=== PATIENT | female | born 1955 | race Caucasian/White ===

== ENCOUNTER 2018-09-09 09:29 | Inpatient (IN) | payer OTHER ==
[2018-09-09] MEDS: SOD CHLORIDE 0.9% 500 ML IV ×2 (10:01→21:00)
[2018-09-09] MEDS: ONDANSETRON 4 MG INJ IV ×3 (10:02→21:17)
[2018-09-09] MEDS: morphine 4 MG/ML VIAL IV ×2 (10:02→14:55)
[2018-09-09 10:08] LABS: ADD MAN DIFF? NO
[2018-09-09 10:10] LABS: BASOPHILS % 0.3 % (0.0-2.0); EOSINOPHILS % 0.3 % (0.0-7.0); HEMATOCRIT 35.1 % (37.0-47.0); HEMOGLOBIN 11.1 g/dl (12.0-16.0); LYMPHOCYTES # 1.6 10^3/ul (0.8-2.9); LYMPHOCYTES % 13.5 % (15.0-51.0); MEAN CORPUSCULAR HEMOGLOBIN 30.1 pg (29.0-33.0); MEAN CORPUSCULAR HGB CONC 31.6 g/dl (32.0-37.0); MEAN CORPUSCULAR VOLUME 95.1 fl (82.0-101.0); MEAN PLATELET VOLUME 10.8 fl (7.4-10.4); MONOCYTE # 0.6 10^3/ul (0.3-0.9); MONOCYTES % 4.7 % (0.0-11.0); NEUTROPHIL # 9.3 10^3/ul (1.6-7.5); NEUTROPHILS % 79.4 % (39.0-77.0); PLATELET COUNT 288 10^3/UL (140-415); RED BLOOD COUNT 3.69 10^6/ul (4.20-5.40); RED CELL DISTRIBUTION WIDTH 17.2 % (11.5-14.5)
[2018-09-09 10:10] LABS: WHITE BLOOD COUNT 11.7 10^3/ul (4.8-10.8)
[2018-09-09 10:29] LABS: INR 1.04; PROTIME 13.7 Sec (11.9-14.9); PT RATIO 1.1
[2018-09-09 10:30] LABS: ANION GAP 13 (5-13); BLOOD UREA NITROGEN 17 mg/dl (7-20); CALCIUM 7.9 mg/dl (8.4-10.2); CARBON DIOXIDE 18 mmol/L (21-31); CHLORIDE 113 mmol/L (97-110); CREATININE 0.85 mg/dl (0.44-1.00); Estimated GFR > 60 mL/min (>60); GLUCOSE 92 mg/dl (70-220); PARTIAL THROMBOPLASTIN TIME 35.2 Sec (23.0-35.0); POTASSIUM 3.2 mmol/L (3.5-5.1); SODIUM 144 mmol/L (135-144)
[2018-09-09] MEDS ORDERED: ACETAMINOPHEN 325 MG TAB PO (21:00)
[2018-09-09] MEDS: morphine 2 MG INJ IV (21:17)
[2018-09-09] MEDS: POTASSIUM CHLORIDE (SR) 20 MEQ TAB PO (23:44)
[2018-09-09] MEDS: SOD CHLORIDE 0.9% 1,000 ML IV (23:45)
[2018-09-10 00:04] LABS: CREATINE KINASE 111 IU/L (23-200)
[2018-09-10 00:17] LABS: CK INDEX 2.3; CK-MB 2.54 ng/ml (0.0-2.4); TROPONIN-I < 0.012 ng/ml (0.000-0.120)
[2018-09-10] MEDS ORDERED: NITROGLYCERIN 2% 30 GM OINT TD (01:00)
[2018-09-10] MEDS: NITROGLYCERIN 2% 1 GM OINT PKT TD ×5 (01:06→23:18)
[2018-09-10 03:29] LABS: ADD MAN DIFF? NO
[2018-09-10 03:51] LABS: HEMOGLOBIN A1C 5.1 % (0-5.9)
[2018-09-10 03:52] LABS: CREATINE KINASE 89 IU/L (23-200)
[2018-09-10 03:55] LABS: ALANINE AMINOTRANSFERASE 27 IU/L (13-69); ALBUMIN 2.4 g/dl (3.3-4.9); ALBUMIN/GLOBULIN RATIO 1.09; ALKALINE PHOSPHATASE 52 IU/L (42-121); ANION GAP 9 (5-13); ASPARTATE AMINO TRANSFERASE 21 IU/L (15-46); BILIRUBIN,INDIRECT 0.3 mg/dl (0-1.1); BILIRUBIN,TOTAL 0.3 mg/dl (0.2-1.3); BLOOD UREA NITROGEN 12 mg/dl (7-20); CALCIUM 7.2 mg/dl (8.4-10.2); CARBON DIOXIDE 21 mmol/L (21-31); CHLORIDE 115 mmol/L (97-110); CHOL/HDL RATIO 1.4 RATIO; CHOLESTEROL 86 mg/dl (100-200); CREATININE 0.74 mg/dl (0.44-1.00); Estimated GFR > 60 mL/min (>60); GLUCOSE 94 mg/dl (70-220); HDL CHOLESTEROL 58 mg/dl (35-98); LDL CHOLESTEROL,CALCULATED 17 mg/dl; POTASSIUM 3.1 mmol/L (3.5-5.1); SODIUM 145 mmol/L (135-144); TOTAL PROTEIN 4.6 g/dl (6.1-8.1); TRIGLYCERIDES 53 mg/dl (0-149)
[2018-09-10 03:57] LABS: BASOPHILS % 0.2 % (0.0-2.0); EOSINOPHILS % 0.2 % (0.0-7.0); HEMATOCRIT 28.8 % (37.0-47.0); HEMOGLOBIN 9.3 g/dl (12.0-16.0); LYMPHOCYTES # 0.8 10^3/ul (0.8-2.9); LYMPHOCYTES % 8.8 % (15.0-51.0); MEAN CORPUSCULAR HEMOGLOBIN 31.1 pg (29.0-33.0); MEAN CORPUSCULAR HGB CONC 32.3 g/dl (32.0-37.0); MEAN CORPUSCULAR VOLUME 96.3 fl (82.0-101.0); MEAN PLATELET VOLUME 11.2 fl (7.4-10.4); MONOCYTE # 0.6 10^3/ul (0.3-0.9); MONOCYTES % 6.4 % (0.0-11.0); NEUTROPHIL # 7.5 10^3/ul (1.6-7.5); NEUTROPHILS % 83.8 % (39.0-77.0); PLATELET COUNT 189 10^3/UL (140-415); RED BLOOD COUNT 2.99 10^6/ul (4.20-5.40); RED CELL DISTRIBUTION WIDTH 16.8 % (11.5-14.5)
[2018-09-10 04:04] LABS: CK INDEX 2.4; CK-MB 2.16 ng/ml (0.0-2.4); TROPONIN-I < 0.012 ng/ml (0.000-0.120)
[2018-09-10] MEDS: SOD CHLORIDE 0.9% 500 ML IV (05:18)
[2018-09-10 06:30] LABS: CREATINE KINASE 94 IU/L (23-200)
[2018-09-10 06:46] LABS: CK INDEX 2.2; CK-MB 2.11 ng/ml (0.0-2.4); TROPONIN-I < 0.012 ng/ml (0.000-0.120)
[2018-09-10] MEDS: SOD CHLORIDE 0.9% 1,000 ML IV (06:54)
[2018-09-10] MEDS: NIFEdipine (XL) 30 MG TAB PO (08:29)
[2018-09-10] MEDS: HYDROCODONE/APAP (5/325) TAB PO ×4 (08:29→20:55)
[2018-09-10] MEDS: PANTOPRAZOLE (EC) 40 MG TAB PO (08:29)
[2018-09-10] MEDS: POTASSIUM CHLORIDE 40 MEQ in SOD CHLORIDE 0.9% 1,000 ML IV ×2 (12:35→22:00)
[2018-09-10] MEDS: MAGNESIUM SULFATE 4 GM/100 ML 100 ML IVPB (12:35)
[2018-09-10] MEDS: ATORVASTATIN 10 MG TAB PO (20:52)
[2018-09-10] MEDS: MAGNESIUM OXIDE 400 MG TAB PO (20:52)
[2018-09-10] MEDS: RANITIDINE 150 MG TAB PO (20:52)
[2018-09-10] MEDS: HEPARIN 5,000 UNIT/1 ML VIAL SC (20:58)
[2018-09-10] MEDS ORDERED: NON-FORMULARY/PATIENT OWN MED (Lovastatin* 20 MG) PO (21:00)
[2018-09-10] MEDS: morphine 2 MG INJ IV (22:14)
[2018-09-11] MEDS: POTASSIUM CHLORIDE 40 MEQ in SOD CHLORIDE 0.9% 1,000 ML IV ×2 (04:35→16:40)
[2018-09-11 05:05] LABS: ADD MAN DIFF? NO
[2018-09-11 05:11] LABS: BASOPHILS % 0.2 % (0.0-2.0); EOSINOPHILS % 0.3 % (0.0-7.0); HEMATOCRIT 29.8 % (37.0-47.0); HEMOGLOBIN 9.6 g/dl (12.0-16.0); LYMPHOCYTES # 0.8 10^3/ul (0.8-2.9); LYMPHOCYTES % 7.5 % (15.0-51.0); MEAN CORPUSCULAR HEMOGLOBIN 30.6 pg (29.0-33.0); MEAN CORPUSCULAR HGB CONC 32.2 g/dl (32.0-37.0); MEAN CORPUSCULAR VOLUME 94.9 fl (82.0-101.0); MEAN PLATELET VOLUME 11.1 fl (7.4-10.4); MONOCYTE # 0.5 10^3/ul (0.3-0.9); MONOCYTES % 4.8 % (0.0-11.0); NEUTROPHIL # 9.7 10^3/ul (1.6-7.5); NEUTROPHILS % 86.8 % (39.0-77.0); PLATELET COUNT 193 10^3/UL (140-415); RED BLOOD COUNT 3.14 10^6/ul (4.20-5.40); RED CELL DISTRIBUTION WIDTH 16.9 % (11.5-14.5)
[2018-09-11 05:11] LABS: WHITE BLOOD COUNT 11.1 10^3/ul (4.8-10.8)
[2018-09-11] MEDS: NITROGLYCERIN 2% 1 GM OINT PKT TD ×3 (05:19→17:15)
[2018-09-11] MEDS: PANTOPRAZOLE (EC) 40 MG TAB PO (05:46)
[2018-09-11 05:48] LABS: ANION GAP 5 (5-13); BLOOD UREA NITROGEN 11 mg/dl (7-20); CARBON DIOXIDE 27 mmol/L (21-31); CHLORIDE 109 mmol/L (97-110); CREATININE 0.57 mg/dl (0.44-1.00); Estimated GFR > 60 mL/min (>60); GLUCOSE 106 mg/dl (70-220); MAGNESIUM 2.1 mg/dl (1.7-2.5); PHOSPHORUS 2.5 mg/dl (2.5-4.9); POTASSIUM 4.9 mmol/L (3.5-5.1); SODIUM 141 mmol/L (135-144)
[2018-09-11] MEDS: NIFEdipine (XL) 30 MG TAB PO (08:05)
[2018-09-11] MEDS: MAGNESIUM OXIDE 400 MG TAB PO ×2 (08:05→20:41)
[2018-09-11] MEDS: HEPARIN 5,000 UNIT/1 ML VIAL SC ×2 (08:05→20:44)
[2018-09-11] MEDS: morphine 2 MG INJ IV ×2 (09:07→17:17)
[2018-09-11] MEDS: RANITIDINE 150 MG TAB PO (20:41)
[2018-09-11] MEDS: ATORVASTATIN 10 MG TAB PO (20:42)
[2018-09-11 22:13] LABS: IMMEDIATE SPIN CROSSMATCH 1 2
[2018-09-11] MEDS: HYDROCODONE/APAP (5/325) TAB PO (23:34)
[2018-09-12] MEDS: morphine 2 MG INJ IV (00:56)
[2018-09-12] MEDS: NITROGLYCERIN 2% 1 GM OINT PKT TD ×4 (05:19→18:00)
[2018-09-12] MEDS: POTASSIUM CHLORIDE 40 MEQ in SOD CHLORIDE 0.9% 1,000 ML IV (05:31)
[2018-09-12] MEDS ORDERED: PHENYLephrine (100 MCG/ML) 10ML SYG (07:00)
[2018-09-12] MEDS ORDERED: ROCURONIUM 50 MG INJ ×2 (07:00→09:35)
[2018-09-12] MEDS: PANTOPRAZOLE (EC) 40 MG TAB PO (07:20)
[2018-09-12] MEDS: POLYMYXIN/BACITRACIN 1L IRRIG (07:51)
[2018-09-12] MEDS ORDERED: FENTAnyl 50 MCG/ML VIAL (08:25)
[2018-09-12] MEDS ORDERED: DIPHENHYDRAMINE 50 MG INJ IV (08:30)
[2018-09-12] MEDS ORDERED: FENTAnyl 50 MCG/ML VIAL IV (08:30)
[2018-09-12] MEDS ORDERED: ALBUTEROL 0.083% (NEB) 2.5 MG/3 ML AMP HHN (08:30)
[2018-09-12] MEDS ORDERED: METOCLOPRAMIDE 10 MG INJ IV (08:30)
[2018-09-12] MEDS: MAGNESIUM OXIDE 400 MG TAB PO ×2 (09:00→20:46)
[2018-09-12] MEDS: HEPARIN 5,000 UNIT/1 ML VIAL SC ×2 (09:00→20:48)
[2018-09-12] MEDS: NIFEdipine (XL) 30 MG TAB PO (09:00)
[2018-09-12] MEDS ORDERED: PROPOFOL 20 ML (09:35)
[2018-09-12] MEDS ORDERED: LIDOCAINE 100 MG SYRINGE (09:35)
[2018-09-12] MEDS ORDERED: ROPIVACAINE 0.5 % 30 ML VIAL (09:35)
[2018-09-12] MEDS ORDERED: SUCCINYLCHOLINE CHLORIDE 100 MG/5 ML SYG IV (09:35)
[2018-09-12] MEDS: VANCOMYCIN 1 GM INJ (10:10)
[2018-09-12] MEDS ORDERED: SUGAMMADEX SODIUM 200 MG/2 ML VIAL IV (10:22)
[2018-09-12] MEDS ORDERED: hydrALAzine 20 MG INJ (10:22)
[2018-09-12] MEDS ORDERED: NACL 0.9% 3 ML SYG IV (11:00)
[2018-09-12] MEDS: FENTAnyl 50 MCG/ML VIAL IV ×2 (11:21→11:26)
[2018-09-12] MEDS: ONDANSETRON 4 MG INJ IV (11:26)
[2018-09-12] MEDS: HYDROmorphONE 1 MG/5 ML IV SYRINGE IV ×3 (11:39→11:52)
[2018-09-12] MEDS: SOD CHLORIDE 0.9% 1,000 ML IV ×2 (11:47→15:22)
[2018-09-12] MEDS: CEFAZOLIN 2 GM/50 ML (PMX) 50 ML IVPB ×2 (11:50→20:46)
[2018-09-12 12:03] LABS: ADD MAN DIFF? NO
[2018-09-12 12:19] LABS: ANION GAP 6 (5-13); BLOOD UREA NITROGEN 8 mg/dl (7-20); CALCIUM 7.9 mg/dl (8.4-10.2); CARBON DIOXIDE 24 mmol/L (21-31); CHLORIDE 106 mmol/L (97-110); CREATININE 0.64 mg/dl (0.44-1.00); Estimated GFR > 60 mL/min (>60); GLUCOSE 104 mg/dl (70-220); SODIUM 136 mmol/L (135-144)
[2018-09-12 12:22] LABS: WHITE BLOOD COUNT 13.2 10^3/ul (4.8-10.8)
[2018-09-12 12:22] LABS: BASOPHILS % 0.1 % (0.0-2.0); EOSINOPHILS % 0.1 % (0.0-7.0); HEMATOCRIT 34.6 % (37.0-47.0); HEMOGLOBIN 11.2 g/dl (12.0-16.0); LYMPHOCYTES # 0.7 10^3/ul (0.8-2.9); LYMPHOCYTES % 5.4 % (15.0-51.0); MEAN CORPUSCULAR HEMOGLOBIN 30.5 pg (29.0-33.0); MEAN CORPUSCULAR HGB CONC 32.4 g/dl (32.0-37.0); MEAN CORPUSCULAR VOLUME 94.3 fl (82.0-101.0); MEAN PLATELET VOLUME 11.3 fl (7.4-10.4); MONOCYTE # 0.3 10^3/ul (0.3-0.9); MONOCYTES % 2.6 % (0.0-11.0); NEUTROPHIL # 12.1 10^3/ul (1.6-7.5); NEUTROPHILS % 91.3 % (39.0-77.0); PLATELET COUNT 202 10^3/UL (140-415); RED BLOOD COUNT 3.67 10^6/ul (4.20-5.40); RED CELL DISTRIBUTION WIDTH 16.8 % (11.5-14.5)
[2018-09-12] MEDS: oxyCODONE 5 MG TAB PO ×3 (14:59→23:50)
[2018-09-12] MEDS: HYDROmorphONE 1 MG/ML SYG IV (20:46)
[2018-09-12] MEDS: ATORVASTATIN 10 MG TAB PO (20:46)
[2018-09-12] MEDS: RANITIDINE 150 MG TAB PO (20:47)
[2018-09-13] MEDS: SOD CHLORIDE 0.9% 500 ML IV ×2 (02:35→03:36)
[2018-09-13] MEDS: CEFAZOLIN 2 GM/50 ML (PMX) 50 ML IVPB (04:10)
[2018-09-13] MEDS: oxyCODONE 5 MG TAB PO ×3 (04:30→18:56)
[2018-09-13] MEDS: NITROGLYCERIN 2% 1 GM OINT PKT TD ×5 (06:00→18:00)
[2018-09-13] MEDS: PANTOPRAZOLE (EC) 40 MG TAB PO (08:11)
[2018-09-13] MEDS: NIFEdipine (XL) 30 MG TAB PO (08:24)
[2018-09-13] MEDS: HEPARIN 5,000 UNIT/1 ML VIAL SC (09:00)
[2018-09-13] MEDS: MAGNESIUM OXIDE 400 MG TAB PO ×2 (09:11→20:35)
[2018-09-13] MEDS: ENOXAPARIN 40 MG/0.4 ML SYG SC (09:15)
[2018-09-13] MEDS: HYDROmorphONE 1 MG/ML SYG IV (11:04)
[2018-09-13] MEDS: SOD CHLORIDE 0.9% 1,000 ML IV (11:08)
[2018-09-13] MEDS: ATORVASTATIN 10 MG TAB PO (20:34)
[2018-09-13] MEDS: RANITIDINE 150 MG TAB PO (20:34)
[2018-09-14] MEDS: oxyCODONE 5 MG TAB PO ×4 (00:51→22:04)
[2018-09-14] MEDS: NITROGLYCERIN 2% 1 GM OINT PKT TD ×4 (06:00→18:00)
[2018-09-14] MEDS: NIFEdipine (XL) 30 MG TAB PO (08:22)
[2018-09-14] MEDS: MAGNESIUM OXIDE 400 MG TAB PO ×2 (08:22→21:43)
[2018-09-14] MEDS: PANTOPRAZOLE (EC) 40 MG TAB PO (08:22)
[2018-09-14] MEDS: ENOXAPARIN 40 MG/0.4 ML SYG SC (08:27)
[2018-09-14] MEDS: RANITIDINE 150 MG TAB PO (21:43)
[2018-09-14] MEDS: ATORVASTATIN 10 MG TAB PO (21:43)
[2018-09-14] MEDS: NACL 0.9% 3 ML SYG IV (21:46)
[2018-09-15] MEDS ORDERED: PANTOPRAZOLE (EC) 40 MG TAB PO (01:00)
[2018-09-15] MEDS: AL HYDROX/MG HYDROX/SIMETH 30 ML CUP PO (01:19)
[2018-09-15] MEDS: oxyCODONE 5 MG TAB PO ×5 (02:22→18:57)
[2018-09-15] MEDS: NITROGLYCERIN 2% 1 GM OINT PKT TD ×4 (06:00→18:00)
[2018-09-15] MEDS: PANTOPRAZOLE (EC) 40 MG TAB PO (07:36)
[2018-09-15] MEDS: MAGNESIUM OXIDE 400 MG TAB PO (07:37)
[2018-09-15] MEDS: NIFEdipine (XL) 30 MG TAB PO (07:37)
[2018-09-15] MEDS: ENOXAPARIN 40 MG/0.4 ML SYG SC (07:39)
[2018-09-15] MEDS: CALCIUM CARBONATE 500 MG CHEW TAB PO ×2 (09:03→14:31)
[2018-09-15] MEDS: BISMUTH SUBSALICYLATE 240 ML BTL PO ×2 (09:40→11:32)
[2018-09-15] MEDS ORDERED: BISMUTH SUBSALICYLATE 120 ML BTL PO (10:00)
[2018-09-15] MEDS: BISACODYL (EC) 5 MG TAB PO (11:28)
[2018-09-15] MEDS: DOCUSATE SODIUM 100 MG CAP PO (11:28)
[2018-09-15] MEDS: ONDANSETRON 4 MG INJ IV (11:31)
== END 2018-09-15 19:40 | DRG 470 ==
LOC: E/R 09:29 → MS1 22:28
PROC: 0SRS0JZ Replacement of Left Hip Joint, Femoral Surface with Synthetic Substitute, Open Approach (ICD-10-PCS; principal; 2018-09-12 08:00)
DX: S72.002A Fracture of unspecified part of neck of left femur, initial encounter for closed fracture (principal); M34.1 CR(E)ST syndrome; W19.XXXA Unspecified fall, initial encounter; E78.5 Hyperlipidemia, unspecified; E87.6 Hypokalemia; E83.42 Hypomagnesemia; D64.9 Anemia, unspecified
CPT/HCPCS: 36415; 36430; 71045; 72170; 73500; 73510; 80048; 80053; 80061; 82550; 82553; 82962; 83036; 83735; 84100; 84443; 84484; 85025; 85610; 85730; 86850; 86900; 86901; 86920; 88305; 88311; 93005; 93306; 96374; 96375; 96376; 97116; 97161; 97530; 99285-25

== ENCOUNTER 2018-09-15 19:50 | Inpatient (IN) | payer OTHER ==
[2018-09-15] MEDS ORDERED: AL HYDROX/MG HYDROX/SIMETH 30 ML CUP PO (20:30)
[2018-09-15] MEDS ORDERED: LACTULOSE 30ML CUP PO (21:30)
[2018-09-15] MEDS: SENNA TAB PO (21:30)
[2018-09-15] MEDS: ATORVASTATIN 10 MG TAB PO (21:40)
[2018-09-15] MEDS: RANITIDINE 150 MG TAB PO (21:40)
[2018-09-15] MEDS: oxyCODONE 5 MG TAB PO (21:49)
[2018-09-16 04:01] LABS: ADD UMIC YES; UR ASCORBIC ACID NEGATIVE (NEGATIVE); UR BACTERIA FEW /HPF (NONE SEEN); UR BILIRUBIN (Dip) NEGATIVE (NEGATIVE); UR BLOOD (Dip) 3+ mg/dL (NEGATIVE); UR CLARITY CLOUDY (CLEAR); UR COLOR YELLOW (YELLOW); UR GLUCOSE (Dip) NEGATIVE (NEGATIVE); UR KETONES (Dip) NEGATIVE (NEGATIVE); UR LEUKOCYTE ESTERASE (Dip) 1+ Leu/ul (NEGATIVE); UR MUCUS FEW /HPF (NONE SEEN); UR NITRITE (Dip) NEGATIVE (NEGATIVE); UR NONSQUAMOUS EPITHELIAL CELL 1 /HPF (NONE SEEN); UR RBC 91 /HPF (0-5); UR SPECIFIC GRAVITY (Dip) 1.019 (1.003-1.030); UR SQUAMOUS EPITHELIAL CELL MODERATE /HPF (FEW); UR TOTAL PROTEIN (Dip) NEGATIVE (NEGATIVE); UR UROBILINOGEN (Dip) NEGATIVE (NEGATIVE); UR WBC 35 /HPF (0-5)
[2018-09-16] MEDS: PANTOPRAZOLE (EC) 40 MG TAB PO (06:20)
[2018-09-16] MEDS: oxyCODONE 5 MG TAB PO ×3 (06:21→20:01)
[2018-09-16] MEDS ORDERED: BISMUTH SUBSALICYLATE 120 ML BTL PO (07:00)
[2018-09-16 07:16] LABS: ADD MAN DIFF? NO
[2018-09-16 07:19] LABS: WHITE BLOOD COUNT 9.6 10^3/ul (4.8-10.8)
[2018-09-16 07:19] LABS: BASOPHILS % 0.2 % (0.0-2.0); EOSINOPHILS % 0.2 % (0.0-7.0); HEMATOCRIT 31.7 % (37.0-47.0); HEMOGLOBIN 10.3 g/dl (12.0-16.0); LYMPHOCYTES # 1.3 10^3/ul (0.8-2.9); LYMPHOCYTES % 13.7 % (15.0-51.0); MEAN CORPUSCULAR HEMOGLOBIN 30.6 pg (29.0-33.0); MEAN CORPUSCULAR HGB CONC 32.5 g/dl (32.0-37.0); MEAN CORPUSCULAR VOLUME 94.1 fl (82.0-101.0); MEAN PLATELET VOLUME 10.7 fl (7.4-10.4); MONOCYTE # 0.8 10^3/ul (0.3-0.9); MONOCYTES % 7.9 % (0.0-11.0); NEUTROPHIL # 7.5 10^3/ul (1.6-7.5); NEUTROPHILS % 77.6 % (39.0-77.0); PLATELET COUNT 334 10^3/UL (140-415); RED BLOOD COUNT 3.37 10^6/ul (4.20-5.40); RED CELL DISTRIBUTION WIDTH 15.9 % (11.5-14.5)
[2018-09-16 07:47] LABS: ALANINE AMINOTRANSFERASE 17 IU/L (13-69); ALBUMIN 2.9 g/dl (3.3-4.9); ALKALINE PHOSPHATASE 92 IU/L (42-121); ANION GAP 6 (5-13); ASPARTATE AMINO TRANSFERASE 23 IU/L (15-46); BILIRUBIN,INDIRECT 0.5 mg/dl (0-1.1); BILIRUBIN,TOTAL 0.5 mg/dl (0.2-1.3); BLOOD UREA NITROGEN 17 mg/dl (7-20); CALCIUM 8.7 mg/dl (8.4-10.2); CARBON DIOXIDE 33 mmol/L (21-31); CHLORIDE 97 mmol/L (97-110); CREATININE 0.81 mg/dl (0.44-1.00); Estimated GFR > 60 mL/min (>60); GLUCOSE 100 mg/dl (70-220); SODIUM 136 mmol/L (135-144); TOTAL PROTEIN 5.8 g/dl (6.1-8.1)
[2018-09-16] MEDS: DOCUSATE SODIUM 100 MG CAP PO ×2 (08:58→20:01)
[2018-09-16] MEDS: NIFEdipine (XL) 30 MG TAB PO (09:00)
[2018-09-16] MEDS: ENOXAPARIN 40 MG/0.4 ML SYG SC (09:01)
[2018-09-16] MEDS: MAGNESIUM HYDROXIDE 30ML CUP PO (11:53)
[2018-09-16] MEDS: RANITIDINE 150 MG TAB PO (20:01)
[2018-09-16] MEDS: SENNA TAB PO (20:01)
[2018-09-16] MEDS: ATORVASTATIN 10 MG TAB PO (20:01)
[2018-09-17] MEDS: oxyCODONE 5 MG TAB PO ×4 (01:05→20:36)
[2018-09-17] MEDS: PANTOPRAZOLE (EC) 40 MG TAB PO (05:59)
[2018-09-17] MEDS: NIFEdipine (XL) 30 MG TAB PO (08:39)
[2018-09-17] MEDS: ENOXAPARIN 40 MG/0.4 ML SYG SC (08:39)
[2018-09-17] MEDS: DOCUSATE SODIUM 100 MG CAP PO ×2 (08:39→20:36)
[2018-09-17] MEDS: RANITIDINE 150 MG TAB PO (20:36)
[2018-09-17] MEDS: ATORVASTATIN 10 MG TAB PO (20:36)
[2018-09-17] MEDS: SENNA TAB PO (20:45)
[2018-09-18] MEDS: PANTOPRAZOLE (EC) 40 MG TAB PO (05:44)
[2018-09-18] MEDS: oxyCODONE 5 MG TAB PO ×3 (07:52→21:36)
[2018-09-18] MEDS: DOCUSATE SODIUM 100 MG CAP PO ×2 (08:34→21:31)
[2018-09-18] MEDS: ENOXAPARIN 40 MG/0.4 ML SYG SC (08:38)
[2018-09-18] MEDS: NIFEdipine (XL) 30 MG TAB PO (08:39)
[2018-09-18] MEDS: SENNA TAB PO (21:31)
[2018-09-18] MEDS: RANITIDINE 150 MG TAB PO (21:31)
[2018-09-18] MEDS: ATORVASTATIN 10 MG TAB PO (21:31)
[2018-09-19] MEDS: PANTOPRAZOLE (EC) 40 MG TAB PO (05:47)
[2018-09-19] MEDS: DOCUSATE SODIUM 100 MG CAP PO ×2 (08:06→20:26)
[2018-09-19] MEDS: ENOXAPARIN 40 MG/0.4 ML SYG SC (08:13)
[2018-09-19] MEDS: NIFEdipine (XL) 30 MG TAB PO (08:13)
[2018-09-19] MEDS: oxyCODONE 5 MG TAB PO ×2 (08:19→20:26)
[2018-09-19 12:19] LABS: ADD UMIC YES; UR ASCORBIC ACID NEGATIVE (NEGATIVE); UR BACTERIA FEW /HPF (NONE SEEN); UR BILIRUBIN (Dip) NEGATIVE (NEGATIVE); UR BLOOD (Dip) 1+ mg/dL (NEGATIVE); UR CLARITY SLIGHTLY CLOUDY (CLEAR); UR COLOR YELLOW (YELLOW); UR GLUCOSE (Dip) NEGATIVE (NEGATIVE); UR KETONES (Dip) NEGATIVE (NEGATIVE); UR LEUKOCYTE ESTERASE (Dip) 1+ Leu/ul (NEGATIVE); UR NITRITE (Dip) POSITIVE (NEGATIVE); UR RBC 1 /HPF (0-5); UR SPECIFIC GRAVITY (Dip) 1.009 (1.003-1.030); UR SQUAMOUS EPITHELIAL CELL FEW /HPF (FEW); UR TOTAL PROTEIN (Dip) NEGATIVE (NEGATIVE); UR UROBILINOGEN (Dip) NEGATIVE (NEGATIVE); UR WBC 10 /HPF (0-5)
[2018-09-19] MEDS: CIPROFLOXACIN 500 MG TAB PO ×2 (13:16→20:26)
[2018-09-19] MEDS: NITROGLYCERIN 2% 1 GM OINT PKT TD (18:43)
[2018-09-19] MEDS: RANITIDINE 150 MG TAB PO (20:26)
[2018-09-19] MEDS: ATORVASTATIN 10 MG TAB PO (20:26)
[2018-09-19] MEDS: SENNA TAB PO (20:26)
[2018-09-20] MEDS: ACETAMINOPHEN 325 MG TAB PO (04:03)
[2018-09-20] MEDS: PANTOPRAZOLE (EC) 40 MG TAB PO (06:12)
[2018-09-20] MEDS: CIPROFLOXACIN 500 MG TAB PO ×2 (06:12→17:32)
[2018-09-20] MEDS: oxyCODONE 5 MG TAB PO ×2 (06:15→23:25)
[2018-09-20] MEDS: NIFEdipine (XL) 30 MG TAB PO (08:45)
[2018-09-20] MEDS: DOCUSATE SODIUM 100 MG CAP PO ×2 (08:45→20:23)
[2018-09-20] MEDS: ENOXAPARIN 40 MG/0.4 ML SYG SC (08:48)
[2018-09-20] MEDS: BISACODYL 10 MG SUPP PR (11:04)
[2018-09-20] MEDS: SENNA TAB PO (20:23)
[2018-09-20] MEDS: RANITIDINE 150 MG TAB PO (20:23)
[2018-09-20] MEDS: ATORVASTATIN 10 MG TAB PO (20:23)
[2018-09-21] MEDS: CIPROFLOXACIN 500 MG TAB PO ×2 (06:25→18:11)
[2018-09-21] MEDS: PANTOPRAZOLE (EC) 40 MG TAB PO (06:25)
[2018-09-21] MEDS: NIFEdipine (XL) 30 MG TAB PO (09:00)
[2018-09-21] MEDS: DOCUSATE SODIUM 100 MG CAP PO ×2 (09:55→20:32)
[2018-09-21] MEDS: ENOXAPARIN 40 MG/0.4 ML SYG SC (09:57)
[2018-09-21] MEDS: oxyCODONE 5 MG TAB PO ×2 (13:13→19:35)
[2018-09-21] MEDS: ACETAMINOPHEN 325 MG TAB PO (18:11)
[2018-09-21] MEDS: RANITIDINE 150 MG TAB PO (20:32)
[2018-09-21] MEDS: SENNA TAB PO (20:32)
[2018-09-21] MEDS: ATORVASTATIN 10 MG TAB PO (20:32)
[2018-09-22] MEDS: PANTOPRAZOLE (EC) 40 MG TAB PO (06:01)
[2018-09-22] MEDS: CIPROFLOXACIN 500 MG TAB PO ×2 (06:01→18:43)
[2018-09-22] MEDS: NIFEdipine (XL) 30 MG TAB PO (08:59)
[2018-09-22] MEDS: ENOXAPARIN 40 MG/0.4 ML SYG SC (08:59)
[2018-09-22] MEDS: DOCUSATE SODIUM 100 MG CAP PO ×2 (08:59→20:34)
[2018-09-22] MEDS: oxyCODONE 5 MG TAB PO ×3 (10:11→21:16)
[2018-09-22] MEDS: ATORVASTATIN 10 MG TAB PO (20:34)
[2018-09-22] MEDS: SENNA TAB PO (20:34)
[2018-09-22] MEDS: RANITIDINE 150 MG TAB PO (20:34)
[2018-09-23] MEDS: CIPROFLOXACIN 500 MG TAB PO ×2 (06:30→18:07)
[2018-09-23] MEDS: PANTOPRAZOLE (EC) 40 MG TAB PO (06:30)
[2018-09-23] MEDS: oxyCODONE 5 MG TAB PO ×2 (06:35→11:29)
[2018-09-23] MEDS: DOCUSATE SODIUM 100 MG CAP PO ×2 (08:57→20:24)
[2018-09-23] MEDS: NIFEdipine (XL) 30 MG TAB PO (08:59)
[2018-09-23] MEDS: ENOXAPARIN 40 MG/0.4 ML SYG SC (08:59)
[2018-09-23] MEDS: BISMUTH SUBSALICYLATE 240 ML BTL PO (11:29)
[2018-09-23] MEDS: RANITIDINE 150 MG TAB PO (20:24)
[2018-09-23] MEDS: SENNA TAB PO (20:24)
[2018-09-23] MEDS: ATORVASTATIN 10 MG TAB PO (20:24)
[2018-09-24] MEDS: oxyCODONE 5 MG TAB PO ×4 (02:20→21:35)
[2018-09-24] MEDS: PANTOPRAZOLE (EC) 40 MG TAB PO (06:03)
[2018-09-24] MEDS: CIPROFLOXACIN 500 MG TAB PO ×2 (06:03→17:30)
[2018-09-24] MEDS: DOCUSATE SODIUM 100 MG CAP PO ×2 (08:43→20:25)
[2018-09-24] MEDS: ENOXAPARIN 40 MG/0.4 ML SYG SC (08:46)
[2018-09-24] MEDS: NIFEdipine (XL) 30 MG TAB PO (08:46)
[2018-09-24] MEDS: BISMUTH SUBSALICYLATE 240 ML BTL PO (12:15)
[2018-09-24] MEDS: RANITIDINE 150 MG TAB PO (20:25)
[2018-09-24] MEDS: SENNA TAB PO (20:25)
[2018-09-24] MEDS: ATORVASTATIN 10 MG TAB PO (20:25)
[2018-09-25] MEDS: oxyCODONE 5 MG TAB PO ×4 (01:34→19:17)
[2018-09-25] MEDS: CIPROFLOXACIN 500 MG TAB PO ×2 (06:06→19:20)
[2018-09-25] MEDS: PANTOPRAZOLE (EC) 40 MG TAB PO (06:06)
[2018-09-25] MEDS: NIFEdipine (XL) 30 MG TAB PO (09:00)
[2018-09-25] MEDS: DOCUSATE SODIUM 100 MG CAP PO ×2 (09:18→20:44)
[2018-09-25] MEDS: ENOXAPARIN 40 MG/0.4 ML SYG SC (09:21)
[2018-09-25 09:32] LABS: ADD MAN DIFF? NO
[2018-09-25 09:35] LABS: BASOPHILS % 0.4 % (0.0-2.0); EOSINOPHILS % 0.5 % (0.0-7.0); HEMATOCRIT 30.6 % (37.0-47.0); HEMOGLOBIN 9.7 g/dl (12.0-16.0); LYMPHOCYTES % 13.4 % (15.0-51.0); MEAN CORPUSCULAR HEMOGLOBIN 30.6 pg (29.0-33.0); MEAN CORPUSCULAR HGB CONC 31.7 g/dl (32.0-37.0); MEAN CORPUSCULAR VOLUME 96.5 fl (82.0-101.0); MEAN PLATELET VOLUME 9.7 fl (7.4-10.4); MONOCYTE # 0.6 10^3/ul (0.3-0.9); MONOCYTES % 7.3 % (0.0-11.0); NEUTROPHILS % 77.6 % (39.0-77.0); PLATELET COUNT 528 10^3/UL (140-415); RED BLOOD COUNT 3.17 10^6/ul (4.20-5.40); RED CELL DISTRIBUTION WIDTH 16.9 % (11.5-14.5)
[2018-09-25 09:35] LABS: WHITE BLOOD COUNT 7.8 10^3/ul (4.8-10.8)
[2018-09-25 09:57] LABS: ANION GAP 7 (5-13); BLOOD UREA NITROGEN 8 mg/dl (7-20); CALCIUM 8.4 mg/dl (8.4-10.2); CARBON DIOXIDE 28 mmol/L (21-31); CHLORIDE 104 mmol/L (97-110); Estimated GFR > 60 mL/min (>60); GLUCOSE 78 mg/dl (70-220); POTASSIUM 3.4 mmol/L (3.5-5.1); SODIUM 139 mmol/L (135-144)
[2018-09-25 15:15] LABS: MAGNESIUM 1.7 mg/dl (1.7-2.5)
[2018-09-25] MEDS: POTASSIUM CHLORIDE (SR) 20 MEQ TAB PO (16:41)
[2018-09-25] MEDS: RANITIDINE 150 MG TAB PO (20:38)
[2018-09-25] MEDS: ATORVASTATIN 10 MG TAB PO (20:38)
[2018-09-25] MEDS: SENNA TAB PO (20:44)
[2018-09-26] MEDS: oxyCODONE 5 MG TAB PO ×3 (02:29→20:54)
[2018-09-26] MEDS: PANTOPRAZOLE (EC) 40 MG TAB PO (06:34)
[2018-09-26] MEDS: CIPROFLOXACIN 500 MG TAB PO ×2 (06:34→16:58)
[2018-09-26] MEDS: NIFEdipine (XL) 30 MG TAB PO (08:40)
[2018-09-26] MEDS: DOCUSATE SODIUM 100 MG CAP PO ×2 (08:47→20:53)
[2018-09-26] MEDS: ENOXAPARIN 40 MG/0.4 ML SYG SC (08:48)
[2018-09-26] MEDS: MAGNESIUM OXIDE 400 MG TAB PO ×2 (10:10→20:53)
[2018-09-26] MEDS: ACETAMINOPHEN 325 MG TAB PO (16:58)
[2018-09-26] MEDS: RANITIDINE 150 MG TAB PO (20:53)
[2018-09-26] MEDS: ATORVASTATIN 10 MG TAB PO (20:53)
[2018-09-26] MEDS: SENNA TAB PO (20:53)
[2018-09-27] MEDS: oxyCODONE 5 MG TAB PO ×3 (03:01→20:51)
[2018-09-27] MEDS: PANTOPRAZOLE (EC) 40 MG TAB PO (06:02)
[2018-09-27] MEDS: CIPROFLOXACIN 500 MG TAB PO ×2 (06:03→19:00)
[2018-09-27 06:26] LABS: ADD MAN DIFF? NO
[2018-09-27 06:35] LABS: WHITE BLOOD COUNT 8.5 10^3/ul (4.8-10.8)
[2018-09-27 06:35] LABS: BASOPHILS % 0.2 % (0.0-2.0); EOSINOPHILS # 0.1 10^3/ul (0.0-0.5); EOSINOPHILS % 0.6 % (0.0-7.0); LYMPHOCYTES # 1.1 10^3/ul (0.8-2.9); LYMPHOCYTES % 12.4 % (15.0-51.0); MEAN CORPUSCULAR HEMOGLOBIN 30.2 pg (29.0-33.0); MEAN CORPUSCULAR HGB CONC 31.3 g/dl (32.0-37.0); MEAN CORPUSCULAR VOLUME 96.7 fl (82.0-101.0); MEAN PLATELET VOLUME 9.4 fl (7.4-10.4); MONOCYTE # 0.6 10^3/ul (0.3-0.9); NEUTROPHIL # 6.8 10^3/ul (1.6-7.5); NEUTROPHILS % 79.4 % (39.0-77.0); PLATELET COUNT 500 10^3/UL (140-415); RED BLOOD COUNT 3.31 10^6/ul (4.20-5.40); RED CELL DISTRIBUTION WIDTH 16.8 % (11.5-14.5)
[2018-09-27 07:11] LABS: ANION GAP 7 (5-13); BLOOD UREA NITROGEN 7 mg/dl (7-20); CALCIUM 8.6 mg/dl (8.4-10.2); CARBON DIOXIDE 23 mmol/L (21-31); CHLORIDE 110 mmol/L (97-110); CREATININE 0.63 mg/dl (0.44-1.00); Estimated GFR > 60 mL/min (>60); GLUCOSE 88 mg/dl (70-220); MAGNESIUM 1.9 mg/dl (1.7-2.5); PHOSPHORUS 4.7 mg/dl (2.5-4.9); SODIUM 140 mmol/L (135-144)
[2018-09-27] MEDS: BISMUTH SUBSALICYLATE 240 ML BTL PO (08:23)
[2018-09-27] MEDS: DOCUSATE SODIUM 100 MG CAP PO ×2 (09:48→20:51)
[2018-09-27] MEDS: MAGNESIUM OXIDE 400 MG TAB PO ×2 (09:48→20:51)
[2018-09-27] MEDS: NIFEdipine (XL) 30 MG TAB PO (09:49)
[2018-09-27] MEDS: ENOXAPARIN 40 MG/0.4 ML SYG SC (09:50)
[2018-09-27] MEDS: ATORVASTATIN 10 MG TAB PO (20:51)
[2018-09-27] MEDS: RANITIDINE 150 MG TAB PO (20:51)
[2018-09-27] MEDS: SENNA TAB PO (20:51)
[2018-09-28] MEDS: oxyCODONE 5 MG TAB PO ×3 (00:46→12:31)
[2018-09-28] MEDS: CIPROFLOXACIN 500 MG TAB PO (05:25)
[2018-09-28] MEDS: PANTOPRAZOLE (EC) 40 MG TAB PO (05:25)
[2018-09-28] MEDS: NIFEdipine (XL) 30 MG TAB PO (09:00)
[2018-09-28] MEDS: ENOXAPARIN 40 MG/0.4 ML SYG SC (09:54)
[2018-09-28] MEDS: DOCUSATE SODIUM 100 MG CAP PO (09:57)
== END 2018-09-28 13:05 | disposition home health service (06) | DRG 560 ==
LOC: VRC 09-17 10:49
PROC: F08Z4ZZ Home Management Treatment (ICD-10-PCS; principal; 2018-09-15)
PROC: F08Z2ZZ Grooming/Personal Hygiene Treatment (ICD-10-PCS; 2018-09-15)
DX: S72.002D Fracture of unspecified part of neck of left femur, subsequent encounter for closed fracture with routine healing (principal); N39.0 Urinary tract infection, site not specified; D62 Acute posthemorrhagic anemia; E78.5 Hyperlipidemia, unspecified; I73.00 Raynaud's syndrome without gangrene; K57.90 Diverticulosis of intestine, part unspecified, without perforation or abscess without bleeding; M34.1 CR(E)ST syndrome; B96.20 Unspecified Escherichia coli [E. coli] as the cause of diseases classified elsewhere; R52 Pain, unspecified; E87.6 Hypokalemia; M97.02XD Periprosthetic fracture around internal prosthetic left hip joint, subsequent encounter; X58.XXXD Exposure to other specified factors, subsequent encounter
CPT/HCPCS: 80048; 80053; 81001; 83735; 84100; 85025; 87081; 87086; 97110; 97112; 97116; 97150; 97163; 97166; 97530; 97535; 97542